=== PATIENT | female | born 1995 | race Caucasian/White ===

== ENCOUNTER 2020-04-28 15:20 | Emergency (ER) | payer OTHER ==
[2020-04-28 16:24] LABS: Pregnancy Test - Urine (BHCG) Negative (Negative); Pregu Control Background? CLEAR/WHITE (CLR/WHITE); Pregu Control Bar Appear? YES (CONTROL BAR); Specific Gravity 1.007 (1.002-1.036)
== END 2020-04-28 16:40 | disposition home or self-care (01) ==
LOC: MADERS 15:20
DX: Z04.1 Encounter for examination and observation following transport accident (principal); F17.210 Nicotine dependence, cigarettes, uncomplicated
CPT/HCPCS: 81025; 99284